=== PATIENT | female | born 1985 | race Caucasian/White ===

== ENCOUNTER 2022-06-07 13:39 | Emergency (ER) | payer MEDICAID ==
[~2022-06-07] VITALS: Ht 157.5 cm; Wt 59.0 kg
--- NOTE | 2022-06-07 13:40 | NUR ---
RECEIVE PT 37 YRS FEMALE CAME BY AMPLANCE C/O ABDOMINAL PAIN FOR 3 DAYS AWAKE AND ALERT
--- NOTE | 2022-06-07 14:10 | NUR ---
SEEN BY DR. MCKEON
[2022-06-07] MEDS ORDERED: KETOROLAC TROMETHAMINE INJ 30 MG/ML VIAL IV ONE (14:30)
[2022-06-07] MEDS ORDERED: IV NS 0.9% 1,000 ML BAG IV ONE ×2 (14:30→16:00)
[2022-06-07] MEDS ORDERED: FAMOTIDINE/PF INJ 20 MG/2 ML VIAL IV ONE ×2 (14:30→14:36)
[2022-06-07] MEDS ORDERED: KETOROLAC TROMETHAMINE 15 MG/ML VIAL ONE (14:35)
--- NOTE | 2022-06-07 14:45 | NUR ---
BLOOD DROW AND SENT TO LAB
--- NOTE | 2022-06-07 15:00 | NUR ---
UA SENT TO LAB
[2022-06-07 15:11] LABS: BASOPHILS % (AUTO) 0.3 % (0.0-2.0); EOSINOPHILS % (AUTO) 0.1 % (0.0-6.0); HEMATOCRIT 41 % (33-45); LYMPHOCYTES # (AUTO) 0.9 K/uL (0.8-4.8); LYMPHOCYTES % (AUTO) 10.8 % (20.0-44.0); MEAN CORPUSCULAR HGB CONC 34 g/dl (31.0-36.0); MEAN CORPUSCULAR VOLUME 85 fL (82-100); MONOCYTES # (AUTO) 0.4 K/uL (0.1-1.30); MONOCYTES % (AUTO) 5.3 % (2.0-12.0); NEUTROPHILS # (AUTO) 6.9 K/uL (1.8-8.9); NEUTROPHILS % (AUTO) 83.5 % (43.0-81.0); PLATELET COUNT (AUTO) 232 K/uL (150-450); WHITE BLOOD COUNT (AUTO) 8.2 K/uL (4.3-11.0)
[2022-06-07 15:26] LABS: ALBUMIN 3.7 g/dL (3.4-5.0); BILIRUBIN,DIRECT 0.2 mg/dL (0.0-0.2); CALCIUM, SERUM 8.6 mg/dL (8.5-10.1); CREATININE 0.7 mg/dL (0.6-1.3); POTASSIUM 3.6 mmol/L (3.5-5.1); TOTAL PROTEIN, SERUM 7.2 g/dL (6.4-8.2)
[2022-06-07 15:55] LABS: BILIRUBIN,URINE NEGATIVE (NEGATIVE); COLOR,URINE YELLOW (YELLOW); LEUKOCYTE ESTERASE ,URINE NEGATIVE (NEGATIVE); NITRITE, URINE NEGATIVE (NEGATIVE); PH,URINE 5.5 (5.0-8.0); PROTEIN,URINE TRACE mg/dl (NEGATIVE); UGLUCOSE NEGATIVE (NEGATIVE); UROBILINOGEN,URINE 0.2 EU/dL (0.2)
[2022-06-07 16:00] LABS: BACTERIA,URINE Few /HPF (None Seen); RBC,URINE 0-2 /HPF (0-2); SQUAMOUS EPITHELIAL CELL,UR Few /HPF (None Seen)
--- NOTE | 2022-06-07 16:59 | NUR ---
AMBLATE TO BR VODING NO COMPLAIN
[2022-06-07] MEDS ORDERED: AMOX-430 PO (17:52)
--- NOTE | 2022-06-07 17:58 | NUR ---
PT RESPONDED TO TX NO ABDOMINAL PAIN WATING FOR DISPO
--- NOTE | 2022-06-07 18:35 | NUR ---
abdominal pain realived d/c instraction given to pt fully and verblized understood d/c home with rx and fallow up care
[2022-06-07 18:48] VITALS: BP 103/94
== END 2022-06-07 18:50 | disposition home or self-care (01) ==
LOC: ER 13:41
DX: K52.9 Noninfective gastroenteritis and colitis, unspecified (principal); R10.13 Epigastric pain; Z87.440 Personal history of urinary (tract) infections; Z79.899 Other long term (current) drug therapy
CPT/HCPCS: 99285; 74176; 96374; 96361; 96375; 85025; 80048; 87086; 83605; 83690; 80076; 84703; 81001; 36415; J3490; J7030 ×2; J1885